=== PATIENT | female | born 1960 | race Caucasian/White ===

== ENCOUNTER 2017-11-20 15:30 | Emergency (ER) | payer SELFPAY ==
[~2017-11-20] VITALS: Ht 162.6 cm; Wt 113.4 kg
[~2017-11-20 15:30] MED LIST: AMLODIPINE BES2.5 MG PO; HYDROCHLOROTHIA25 MG PO; K DUR10 MEQ PO
[2017-11-20 19:18] VITALS: BP 130/70
== END 2017-11-20 19:31 | disposition home or self-care (01) ==
LOC: FSED 15:30
DX: R07.9 Chest pain, unspecified (principal); I10 Essential (primary) hypertension
CPT/HCPCS: 71046; 80053; 82553; 84484; 85025; 85379; 93005; 99283

== ENCOUNTER 2020-04-05 09:37 | Emergency (ER) | payer OTHER ==
[~2020-04-05] VITALS: Ht 160 cm; Wt 115.7 kg
[2020-04-05] MEDS ORDERED: ULTRAM 50MG50 MG PO (11:11)
== END 2020-04-05 11:31 | disposition home or self-care (01) ==
LOC: FSED 10:19
DX: S90.32XA Contusion of left foot, initial encounter (principal); X50.1XXA Overexertion from prolonged static or awkward postures, initial encounter; I10 Essential (primary) hypertension
CPT/HCPCS: 99283

== ENCOUNTER 2020-10-20 12:19 | Emergency (ER) | payer OTHER ==
[~2020-10-20] VITALS: Ht 160 cm; Wt 126.1 kg
[~2020-10-20 12:19] MED LIST changes: +ULTRAM 50MG50 MG PO
[2020-10-20] MEDS ORDERED: METHYLPREDNISOLONE SOD SUCC 125 MG/2ML VIAL IM ONE (13:30)
[2020-10-20] MEDS ORDERED: ALBUTEROL/IPRATROPIUM 3 ML NEB NEB ONE (13:30)
[2020-10-20] MEDS ORDERED: CEFDINIR300 MG PO (13:36)
[2020-10-20] MEDS ORDERED: VENTOLIN HFA18 GM INH (13:37)
[2020-10-20] MEDS ORDERED: PREDNISONE20 MG PO (13:39)
[2020-10-20] MEDS ORDERED: GUAIFEN-CODEINE5 ML PO (13:41)
[2020-10-20] MEDS ORDERED: ALBUTEROL/IPRATROPIUM 3 ML NEB ONE (13:51)
[2020-10-20] MEDS ORDERED: METHYLPREDNISOLONE SOD SUCC 125 MG/2ML VIAL ONE (13:51)
[2020-10-20 14:06] VITALS: BP 156/70
== END 2020-10-20 14:07 | disposition home or self-care (01) ==
LOC: FSED 12:40
DX: J20.9 Acute bronchitis, unspecified (principal); J30.2 Other seasonal allergic rhinitis; I10 Essential (primary) hypertension; E78.5 Hyperlipidemia, unspecified; Z79.899 Other long term (current) drug therapy
CPT/HCPCS: 71046; 99283; J2930

== ENCOUNTER 2022-06-12 16:26 | Emergency (ER) | payer OTHER ==
[~2022-06-12] VITALS: Ht 160 cm; Wt 126.1 kg
[~2022-06-12 16:26] MED LIST changes: +CEFDINIR300 MG PO; +GUAIFEN-CODEINE5 ML PO; +PREDNISONE20 MG PO; +VENTOLIN HFA18 GM INH
[2022-06-12] MEDS ORDERED: IBUPROFEN 400 MG TAB PO ONE (17:30)
[2022-06-12] MEDS ORDERED: IBUPROFEN 400 MG TAB ONE (17:53)
[2022-06-12] MEDS ORDERED: NAPROSYN500 MG PO (18:43)
[2022-06-12 18:49] VITALS: BP 140/84
== END 2022-06-12 18:53 | disposition home or self-care (01) ==
LOC: FSED 16:38
DX: S93.401A Sprain of unspecified ligament of right ankle, initial encounter (principal); S93.601A Unspecified sprain of right foot, initial encounter; I10 Essential (primary) hypertension; X50.1XXA Overexertion from prolonged static or awkward postures, initial encounter; Y93.89 Activity, other specified; Y92.512 Supermarket, store or market as the place of occurrence of the external cause; Y99.0 Civilian activity done for income or pay; Z91.018 Allergy to other foods
CPT/HCPCS: 99284

== ENCOUNTER → 2024-10-14 | Day surgery (SDC) | payer MEDICARE ==
[2024-10-11 10:47] LABS: BASOPHILS # (AUTO) 0.1 (0.0-0.1); BASOPHILS % 0.8 % (0.0-1.0); EOSINOPHILS # (AUTO) 0.3 (0.0-0.4); EOSINOPHILS % 3.8 % (0.0-6.0); HEMOGLOBIN 12.2 g/dL (12.0-16.0); LYMPHOCYTES # (AUTO) 2.3 (1.0-3.2); LYMPHOCYTES % 29.2 % (18.0-39.1); MEAN CORPUSCULAR HEMOGLOBIN 29.1 pg (28-32); MEAN CORPUSCULAR VOLUME 88.3 fL (81-99); MONOCYTES # (AUTO) 0.7 (0.2-0.8); MONOCYTES % 8.6 % (4.4-11.3); NEUTROPHILS # (AUTO) 4.4 (2.1-6.9); NEUTROPHILS % 57.1 % (38.7-80.0); PLATELET COUNT 177 x10e3/uL (140-360); RED BLOOD COUNT 4.19 x10e6/uL (3.6-5.1); RED CELL DISTRIBUTION WIDTH 12.9 % (11.7-14.4)
[~2024-10-14] MED LIST changes: +ASPIRIN EC81 MG PO; +CELECOXIB200 MG; +FENTANYL CITRATE/PF 100MCG/2 ML INJ ONE; +LIPO IM; +LOPRESSOR25 MG PO; +LOSARTAN POTASS50 MG; +MELOXICAM7.5 MG PO; +MIDAZOLAM HCL 5 MG/ML VIAL ONE; +MIRALAX17 GM PO; +MOUNJARO7.5 MG/0.5; +NAPROSYN500 MG PO; +OMEGA-31000 MG PO; +OMEPRAZOLE40 MG PO; +ONDANSETRON HCL INJ 2MG/ML 2ML 2 MG/ML VIAL ONE; +ONDANSETRON ODT8 MG PO; +PANTOPRAZOLE SO40 MG; +PHENTERMINE H37.5 MG PO; +PROPOFOL IV EMULSION 50 ML IV ONE; +ROSUVASTATIN CA20 MG; +SUMATRIPTAN SU100 MG; +SUMATRIPTAN20 MG PO; +VITAMIN B122500 MCG PO
[2024-10-14] MEDS: LACTATED RINGER'S 1,000 ML ONE (10:18)
[2024-10-14 12:40] VITALS: BP 109/65; PULSE 72; RESP 18; TEMP 98.2; O2SAT 97
== END | disposition home or self-care (01) ==
LOC: OR 10:08
PROVIDERS: ATTEND Internal Medicine Gastroenterology
DX: K21.00 Gastro-esophageal reflux disease with esophagitis, without bleeding (principal); Z12.11 Encounter for screening for malignant neoplasm of colon; K29.50 Unspecified chronic gastritis without bleeding; K31.89 Other diseases of stomach and duodenum; R14.2 Eructation; Z87.11 Personal history of peptic ulcer disease; D12.4 Benign neoplasm of descending colon; D12.2 Benign neoplasm of ascending colon; D12.0 Benign neoplasm of cecum; D12.3 Benign neoplasm of transverse colon; K62.1 Rectal polyp; K64.8 Other hemorrhoids; I11.0 Hypertensive heart disease with heart failure; I50.9 Heart failure, unspecified; E78.5 Hyperlipidemia, unspecified; E11.9 Type 2 diabetes mellitus without complications; Z79.85 Long-term (current) use of injectable non-insulin antidiabetic drugs; K76.0 Fatty (change of) liver, not elsewhere classified; Z79.82 Long term (current) use of aspirin; Z79.899 Other long term (current) drug therapy; Z01.812 Encounter for preprocedural laboratory examination; E66.01 Morbid (severe) obesity due to excess calories; Z68.42 Body mass index [BMI] 45.0-49.9, adult; Z71.3 Dietary counseling and surveillance
CPT/HCPCS: 36415 ×2; 43239; 45385; 82948; 85025; J2250; J2405; J2470; J2704; J3010; J7121; 45378

== ENCOUNTER → 2024-11-07 | Outpatient (REF) | payer MEDICARE ==
[~2024-11-07] MED LIST changes: -FENTANYL CITRATE/PF 100MCG/2 ML INJ ONE; -MIDAZOLAM HCL 5 MG/ML VIAL ONE; -ONDANSETRON HCL INJ 2MG/ML 2ML 2 MG/ML VIAL ONE; -PROPOFOL IV EMULSION 50 ML IV ONE
== END ==
LOC: US 07:14
PROVIDERS: ATTEND Nurse Practitioner
DX: K76.0 Fatty (change of) liver, not elsewhere classified (principal)
CPT/HCPCS: 76700

== ENCOUNTER 2025-01-29 19:26 | Emergency (ER) | payer MEDICARE ==
[~2025-01-29] VITALS: Ht 160 cm; Wt 127.0 kg
[2025-01-29] MEDS ORDERED: KETOROLAC TROME10 MG PO (21:22)
[2025-01-29] MEDS: KETOROLAC TROMETHAMINE 30 MG/ML VIAL IM STA (21:46)
[2025-01-29 21:47] VITALS: PULSE 71; RESP 18; TEMP 98.3; O2SAT 98
== END 2025-01-29 21:50 | disposition home or self-care (01) ==
LOC: ER 19:33
DX: S02.2XXA Fracture of nasal bones, initial encounter for closed fracture (principal); S01.81XA Laceration without foreign body of other part of head, initial encounter; S50.01XA Contusion of right elbow, initial encounter; S63.690A Other sprain of right index finger, initial encounter; W01.0XXA Fall on same level from slipping, tripping and stumbling without subsequent striking against object, initial encounter; Y93.01 Activity, walking, marching and hiking; Y92.89 Other specified places as the place of occurrence of the external cause; I10 Essential (primary) hypertension; E11.9 Type 2 diabetes mellitus without complications; E78.5 Hyperlipidemia, unspecified; K21.9 Gastro-esophageal reflux disease without esophagitis
CPT/HCPCS: 12011; 70450; 70486; 73080; 73140; 99284; J1885